=== PATIENT | male | born 1980 | race Two or more races ===

== ENCOUNTER 2023-02-22 05:30 | Day surgery (SDC) | payer OTHER ==
[~2023-02-22] VITALS: Ht 175.3 cm; Wt 108.9 kg
[~2023-02-22 05:30] MED LIST: COZAAR100 MG PO
[2023-02-22] MEDS ORDERED: OXYC1TAB9 PO (10:52)
== END 2023-02-22 11:10 | disposition home or self-care (01) ==
LOC: CIR.AMB 05:30
PROVIDERS: ATTEND Surgery
DX: K62.5 Hemorrhage of anus and rectum (principal); K60.2 Anal fissure, unspecified; K64.8 Other hemorrhoids; K64.4 Residual hemorrhoidal skin tags; Z20.822 Contact with and (suspected) exposure to COVID-19